=== PATIENT | female | born 1965 | race Caucasian/White ===

== ENCOUNTER 2017-04-30 11:12 | Emergency (ER) | payer MEDICAID ==
[~2017-04-30] VITALS: Ht 165.1 cm; Wt 94.0 kg
[2017-04-30 13:32] VITALS: BP 104/72
== END 2017-04-30 13:35 | disposition home or self-care (01) ==
LOC: ED 13:31
DX: S89.92XD Unspecified injury of left lower leg, subsequent encounter (principal); M23.52 Chronic instability of knee, left knee; E11.9 Type 2 diabetes mellitus without complications; Z88.0 Allergy status to penicillin; Z88.2 Allergy status to sulfonamides; X58.XXXD Exposure to other specified factors, subsequent encounter
CPT/HCPCS: 99284

== ENCOUNTER → 2019-01-10 | Outpatient (CLI) | payer MEDICARE ==
[~2019-01-10] MED LIST: ATOR40TA78 PO; CHOL500015 PO; DIVA500T17 PO; ESCI10TA PO; FLUT16SP NAS; IBUP-1223 PO; LOSA50TA14 PO; METF500T17 PO; NALO4SPR NAS; OMEP-110 PO; OXYC10TA6 PO; RISP1TAB3 PO; TRIA15CR61 TP; VITAMIN B PO
[2019-01-10 09:14] LABS: ALBUMIN 3.4 g/dL (3.4-5.0); ANION GAP 6 mmol/L (5-15); CALCIUM 8.7 mg/dL (8.5-10.1); CHLORIDE 104 mmol/L (98-107)
[2019-01-10 09:17] LABS: ALANINE AMINOTRANSFERASE 42 U/L (12-78); ALKALINE PHOSPHATASE 93 U/L (45-117); BILIRUBIN,TOTAL 0.3 mg/dL (0.2-1.0); CREATININE 0.79 mg/dL (0.55-1.02); TOTAL PROTEIN 6.5 g/dL (6.4-8.2)
== END | disposition home or self-care (01) ==
LOC: STAR 07:19
PROVIDERS: ATTEND Orthopaedic Surgery
DX: Z01.818 Encounter for other preprocedural examination (principal); M75.120 Complete rotator cuff tear or rupture of unspecified shoulder, not specified as traumatic; R94.31 Abnormal electrocardiogram [ECG] [EKG]
CPT/HCPCS: 36415; 80053; 93005

== ENCOUNTER 2019-01-17 06:45 | Day surgery (SDC) | payer MEDICARE ==
[2019-01-10 08:09] VITALS: BP 119/84
[~2019-01-17] VITALS: Ht 165.1 cm; Wt 107.8 kg
[2019-01-17] MEDS ORDERED: BUPIVACAINE/PF-EPI 0.5% 1:200K ONE (07:06)
[2019-01-17] MEDS ORDERED: BACITRACIN 50,000 UNIT ONE (07:06)
[2019-01-17] MEDS ORDERED: EPINEPHRINE TOPICAL SOLN 1 MG/ML, 30ML ONE (07:07)
[2019-01-17] MEDS ORDERED: LACTATED RINGERS 1,000 ML IV SCH (07:18)
[2019-01-17] MEDS ORDERED: POTASSIUM PO (07:22)
[2019-01-17 07:23] VITALS: BP 119/84
== END 2019-01-17 08:55 | disposition home or self-care (01) ==
LOC: OUT 06:45
PROVIDERS: ATTEND Orthopaedic Surgery
DX: M75.120 Complete rotator cuff tear or rupture of unspecified shoulder, not specified as traumatic (principal); Z53.9 Procedure and treatment not carried out, unspecified reason; I10 Essential (primary) hypertension; E11.9 Type 2 diabetes mellitus without complications; Z90.710 Acquired absence of both cervix and uterus; Z98.890 Other specified postprocedural states
CPT/HCPCS: 36415; 82962; 84132; J7120